=== PATIENT | male | born 1935 | race Caucasian/White ===

== ENCOUNTER 2018-12-05 15:22 | Emergency (ER) | payer MEDICARE ==
[2018-12-05 15:38] VITALS: BP 121/75
[2018-12-05] MEDS ORDERED: Ondansetron 4 MG/2 ML SDV IVPUSH ONE (16:02)
[2018-12-05] MEDS ORDERED: HYDROmorphone 1 MG/ML Syringe IVPUSH ONE (16:02)
--- NOTE | 2018-12-05 16:07 | EDM.PDOC ---
ED HPI GENERAL MEDICAL PROBLEM - General Chief Complaint: Lower Extremity Injury/Pain Stated Complaint: SEVERE PAIN IN RIGHT GROIN AREA Time Seen by Provider: 12/05/18 15:47 Source of Information: Reports: Patient History Limitations: Reports: No Limitations - History of Present Illness INITIAL COMMENTS - FREE TEXT/NARRATIVE: 83-year-old male presents to the ED with his . [facility] he went to see about right groin inguinal pain that he awoke with this morning. He was fine when he went to bed. He was up 3 times during the night to void and had no problems. Is a history of remote prostate cancer many years ago. 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 Subsequently he has fallen and fractured his left femur has a lc in place. He had to have a total hip replacement as well. He recently fell about 6 please don't fractured his left patella which is now in the healing stage. He has had no recent falls to injure his right lower extremity or hip. He points to the pain being right in the inguinal area. Concern by his edition [facility] was whether or not he had a inguinal incarcerated hernia. Patient could barely weight-bear due to the severity of the pain. You take a tramadol about 11:00 this morning with very minimal relief. Pain is gone if he doesn't move. Onset: Today Onset Date: 12/05/18 Onset Time: 07:30 Duration: Hour(s): Location: Reports: Lower Extremity, Right (Right inguinal area) Right Groin Pain Score (Numeric/FACES): 6 - Related Data Allergies Allergy/AdvReac Type Severity Reaction Status Date / Time Iodinated Contrast- Oral and Allergy Intermediate Hives Verified 12/05/18 15:37 IV Dye [Iodinated Contrast Media - IV Dye] Home Meds: Home Meds Levothyroxine 50 mcg PO ACBREAKFAST 10/27/14 [History] Sertraline [Zoloft] 100 mg PO DAILY 10/27/14 [History] Warfarin [Coumadin] 7.5 mg PO SUMOWEFR 10/27/14 [History] Gabapentin [Neurontin] 300 mg PO TID 05/08/15 [History] Aspirin 325 mg PO DAILY #0 05/09/15 [Rx] Warfarin [Coumadin] 5 mg PO TUTHSA #0 05/09/15 [Rx] Acetaminophen 650 mg PO Q6H PRN 12/05/18 [History] Atenolol 50 mg PO BID 12/05/18 [History] Calcium Carbonate/Vitamin D3 [Calcium Carb 500 MG] 2,000 mg PO DAILY 12/05/18 [ History] Cholecalciferol (Vitamin D3) [Vitamin D3] 2,000 unit PO DAILY 12/05/18 [History] Digoxin 125 mcg PO DAILY 12/05/18 [History] Polyethylene Glycol 3350 [MiraLAX] 17 gm PO TID PRN 12/05/18 [History] oxyCODONE 5 mg PO Q4H PRN 12/05/18 [History] Past Medical History HEENT History: Reports: Hard of Hearing, Impaired Vision Other HEENT History: Impaired vision corrected with glasses. 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 He speech was not affected by the stroke.) Other Psychiatric History: Patient reports some short term memory deficit. 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 Is due to start back on chemotherapy tomorrow.), Prostate Social & Family History - Living Situation & Occupation Living situation: Reports: Occupation: Retired [employer] - Review of Systems Review Of Systems: See Below Constitutional: Reports: Malaise, Weakness, Fatigue, Decreased Appetite, Weight Loss. Denies: Fever, Chills HEENT: Reports: Glasses Respiratory: Reports: No Symptoms Cardiovascular: Reports: No Symptoms Endocrine: Reports: Fatigue GI/Abdominal: Reports: Abdominal Pain (Right inguinal pain.), Constipation, Nausea (Vocational positive constipation.). Denies: Vomiting ( No nausea present due to the intensity of the pain) : Reports: Frequency, Other (Nocturia usually 2 or 3 times.) Musculoskeletal: Reports: Neck Pain, Shoulder Pain, Back Pain, Joint Pain (Left hip left knee is healing from a patellar fracture.) Skin: Reports: Bruising (Uses fairly easily.) Neurological: Reports: Difficulty Walking, Other (He has mild hemiparesis on the right arm and hand with nearly approaching contracture at the elbow and wrist. He cannot feed himself with his right upper extremity had to switch to the left side.). Denies: Trouble Speaking, Weakness Psychiatric: Reports: No Symptoms Hematologic/Lymphatic: Reports: No Symptoms Immunologic: Reports: No Symptoms ED EXAM, RENAL/ - Physical Exam Exam: See Below Exam Limited By: No Limitations General Appearance: Alert, WD/WN, Mild Distress Eye Exam: Bilateral Eye: Normal Inspection Throat/Mouth: Normal Inspection, Normal Lips, Normal Oropharynx Head: Atraumatic, Normocephalic Neck: Normal Inspection, Supple, Non-Tender, Full Range of Motion. No: Carotid Bruit, Lymphadenopathy (L) Respiratory/Chest: No Respiratory Distress, Lungs Clear, Normal Breath Sounds, No Accessory Muscle Use Cardiovascular: Normal Peripheral Pulses, Regular Rate, Rhythm, No Edema, No Gallop, No Murmur, No Rub GI/Abdominal: Normal Bowel Sounds, Soft, Non-Tender, No Organomegaly, No Abnormal Bruit, No Mass, Other (Male) Exam: Other (He does have a right-sided inguinal hernia with a cough impulse. There is no evidence that there is incarceration of the hernia.). No: Testicular Mass, Testicular Tenderness (L) Back Exam: Normal Inspection, Full Range of Motion. No: CVA Tenderness (L), CVA Tenderness (R) Extremities: Other (He is able to lift the left extremity off the gurney without any issues. Internal/external rotation of the hip does not make the pain worse on the right side. He is also able to lift the right leg off the gurney with some pain in the right inguinal area. He has pain inguinal area on external rotation of the hip. I could not localize any pain along the iliopsoas or the inguinal) Neurological: Alert, Oriented, CN II-XII Intact, Normal Cognition, Normal Gait Psychiatric: Normal Affect, Normal Mood Skin Exam: Warm, Dry, Intact, Normal Color, No Rash Course - Vital Signs Last Recorded V/S: Last Vital Signs Temp 36.6 C 12/05/18 15:35 Pulse 69 12/05/18 15:35 Resp 16 12/05/18 15:35 BP 121/75 12/05/18 15:35 Pulse Ox 92 L 12/05/18 15:35 - Orders/Labs/Meds Orders: Active Orders 24 hr Category Date Time Status Pelvis 1V or 2V [CR] Stat Exams 12/05/18 16:00 Taken Sodium Chloride 0.9% [Normal Saline] 1,000 ml Med 12/05/18 16:15 Active IV ASDIRECTED Medication Orders Sodium Chloride (Normal Saline) 1,000 mls @ 125 mls/hr IV ASDIRECTED SERG Last Admin: 12/05/18 16:22 Dose: 125 mls/hr Labs: Laboratory Tests 12/05/18 12/05/18 12/05/18 Range/Units 16:20 16:20 16:20 WBC 10.81 H (4.23-9.07) K/mm3 RBC 4.10 L (4.63-6.08) M/mm3 Hgb 12.0 L (13.7-17.5) gm/L Hct 37.2 L (40.1-51.0) % MCV 90.7 (79.0-92.2) fl MCH 29.3 (25.7-32.2) pg MCHC 32.3 (32.2-35.5) g/dl RDW Std Deviation 44.7 H (35.1-43.9) fL Plt Count 179 (163-337) K/mm3 MPV 9.8 (9.4-12.3) fl Neutrophils % (Manual) 93 H (40-60) % Band Neutrophils % 0 (0-10) % Lymphocytes % (Manual) 6 L (20-40) % Atypical Lymphs % 0 % Monocytes % (Manual) 1 L (2-10) % Eosinophils % (Manual) 0 L (0.8-7.0) % Basophils % (Manual) 0 L (0.2-1.2) Toxic Granulation Few Platelet Estimate Adequate Plt Morphology Comment Normal RBC Morph Comment Normal ESR 42 H (0-15) mm/hr Sodium 139 (136-145) mEq/L Potassium 4.3 (3.5-5.1) mEq/L Chloride 102 (98-107) mEq/L Carbon Dioxide 28 (21-32) mEq/L Anion Gap 13.3 (5-15) BUN 19 H (7-18) mg/dL Creatinine 0.9 (0.7-1.3) mg/dL Est Cr Clr Drug Dosing 70.65 mL/min Estimated GFR (MDRD) > 60 (>60) mL/min BUN/Creatinine Ratio 21.1 H (14-18) Glucose 115 (83-115) mg/dL Calcium 9.2 (8.5-10.1) mg/dL Total Bilirubin 0.5 (0.2-1.0) mg/dL AST 19 (15-37) U/L ALT 20 (16-63) U/L Alkaline Phosphatase 67 (46-116) U/L C-Reactive Protein 1.6 H* (<1.0) mg/dL Total Protein 7.1 (6.4-8.2) g/dl Albumin 3.3 L (3.4-5.0) g/dl Globulin 3.8 gm/dL Albumin/Globulin Ratio 0.9 L (1-2) Prostate Specific Ag (0.1-4.0) ng/mL 12/05/18 Range/Units 16:20 WBC (4.23-9.07) K/mm3 RBC (4.63-6.08) M/mm3 Hgb (13.7-17.5) gm/L Hct (40.1-51.0) % MCV (79.0-92.2) fl MCH (25.7-32.2) pg MCHC (32.2-35.5) g/dl RDW Std Deviation (35.1-43.9) fL Plt Count (163-337) K/mm3 MPV (9.4-12.3) fl Neutrophils % (Manual) (40-60) % Band Neutrophils % (0-10) % Lymphocytes % (Manual) (20-40) % Atypical Lymphs % % Monocytes % (Manual) (2-10) % Eosinophils % (Manual) (0.8-7.0) % Basophils % (Manual) (0.2-1.2) Toxic Granulation Platelet Estimate Plt Morphology Comment RBC Morph Comment ESR (0-15) mm/hr Sodium (136-145) mEq/L Potassium (3.5-5.1) mEq/L Chloride (98-107) mEq/L Carbon Dioxide (21-32) mEq/L Anion Gap (5-15) BUN (7-18) mg/dL Creatinine (0.7-1.3) mg/dL Est Cr Clr Drug Dosing mL/min Estimated GFR (MDRD) (>60) mL/min BUN/Creatinine Ratio (14-18) Glucose (83-115) mg/dL Calcium (8.5-10.1) mg/dL Total Bilirubin (0.2-1.0) mg/dL AST (15-37) U/L ALT (16-63) U/L Alkaline Phosphatase (46-116) U/L C-Reactive Protein (<1.0) mg/dL Total Protein (6.4-8.2) g/dl Albumin (3.4-5.0) g/dl Globulin gm/dL Albumin/Globulin Ratio (1-2) Prostate Specific Ag 0.0 L (0.1-4.0) ng/mL Meds: Medications Generic Name Dose Route Start Last Admin Trade Name Freq PRN Reason Stop Dose Admin Sodium Chloride 1,000 mls @ 125 mls/hr 12/05/18 16:15 12/05/18 16:22 Normal Saline IV 125 mls/hr ASDIRECTED SERG Administration Discontinued Medications Generic Name Dose Route Start Last Admin Trade Name Freq PRN Reason Stop Dose Admin Hydromorphone HCl 0.5 mg 12/05/18 16:02 12/05/18 16:23 Dilaudid IVPUSH 12/05/18 16:03 0.5 mg ONETIME ONE Administration Ondansetron HCl 4 mg 12/05/18 16:02 12/05/18 16:22 Zofran IVPUSH 12/05/18 16:03 4 mg ONETIME ONE Administration - Radiology Interpretation Free Text/Narrative:: 83-year-old male presents to the ED at the request of primary care physician at [facility]. He presents there was severe pain in his right inguinal area and especially with weightbearing since he awoke this morning. No falls or injuries. 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 Its unclear whether this was a pathologic fracture. You recently fell and fractured his left patella 6 weeks ago and is just on the mend from this. On examination he has pain only on external rotation of his hip on the right side. Left his left leg off the gurney with no issue and no pain on the right side even on external or internal rotation of the hip. There is evidence of a right inguinal hernia but it is not incarcerated but he has a cough impulse that is easily palpable. His pain is somewhat better now as compared to what it was earlier suggesting possibly that he did have an incarcerated hernia that his self reduced. With his history of prostate cancer with metastatic bone disease I'm therefore going to have x-rays of his pelvis done and routine labs done. He will receive Dilaudid 0.5 mg IV for pain relief with Zofran 4 mg IV as well. - Re-Assessments/Exams Free Text/Narrative Re-Assessment/Exam: 12/05/18 17:26: X-rays of the pelvis reveals a total left hip with reconstruction. No obvious pelvic fractures or abnormalities are identified within the right femoral neck or head. Acetabulum appears intact. No obvious lytic lesions are identified in the pelvis. 12/05/18 18:18 Labs are now back showing a white count of 10.81. Differential is 93% neutrophils and no band cells. Hemoglobin is 12.0 with hematocrit of 37.2. Platelet count is 179,000. Sedimentation rate is 42. Sodium 139 with a potassium of 4.3. Chloride 102 with a bicarbonate of 28. Anion gap is 13.3. BUN is 19 with a creatinine of 0.9. GFR remains greater than 60. Glucose is 1:15. Calcium is 9.2. Liver function is normal. Alk phosphatase is only 67 and increased any bony metastatic disease. C-reactive protein is 1.6. Total protein is 7.1. Albumin fraction is 3.3. Prostate-specific antigen is 0.0. 12/05/18 18:27 I get him up off the gurney with the help of a nurse and we stood him with the aid of a walker. He was able to lift the leg off the gurney without any pain whatsoever. He stood well and he could ambulate without any pain as well. I invaginated the scrotum to further evaluate for inguinal hernia and I could not identify one on either side. Pushing all along the inguinal ligament I could not identify any tendinopathy causes pain. Therefore I suspect it actually came from the true hip joint and was likely due to mild arthritic change. However at this point time I cannot pinpoint the source of his pain. At this time I'm going to allow him to go home with his and she is present in the room during this examination. It's a bit admitted in the med as to what caused his pain to be so bad today. They'll follow-up with oncologist in [place] tomorrow to decide on whether or not he needs further chemotherapy. Therefore I sent a copy of his chart with his labs that we did today with the patient. Departure - Departure Time of Disposition: 18:31 Disposition: Home, Self-Care 01 Condition: Fair Clinical Impression: Hip joint painful on movement Qualifiers: Laterality: right Qualified Code(s): M25.551 - Pain in right hip - Discharge Information *PRESCRIPTION DRUG MONITORING PROGRAM REVIEWED*: Not Applicable *COPY OF PRESCRIPTION DRUG MONITORING REPORT IN PATIENT SHADY: Not Applicable Instructions: Pain Without a Known Cause Referrals: Randy Padilla MD [Primary Care Provider] - Forms: ED Department Discharge Additional Instructions: Evaluation the emergency room today in regards to development of severe pain with attempting to weight-bear on the right leg.. To be pain deep in the inguinal ligament area with some concerns of a inguinal hernia mentioned by physician at [facility]. On evaluation in the emergency department he do have a cough impulse suggesting a hernia due to weakness of the abdominal wall on the right side as compared to the left. Mild pain with full internal rotation of your right hip but you could lift the leg off the gurney without any problems. The left leg has an artificial hip and a lc in the femur with a healing kneecap. History of prostate cancer 15 years ago with no known recurrence. Lab tests again revealed no signs of recurrence of prostate cancer and no signs of bone involvement with cancer. Trace of the pelvis show some mild arthritis in the right hip joint but no evidence of cancer invading the bone of the hip or the pelvis. On standing you had very little pain at this time with walking with the aid of a walker. Therefore the source of your pain that seemed to be transient today is unclear. Could find no evidence of ligamentous injury and upon standing with invagination of the scrotum I could not identify an inguinal hernia at all. It appears her pain was likely coming from the true hip joint causing groin pain that was transient. Therefore at this time I don't have any further suggestions for treatment other than possible need for anti-inflammatory medication if the pain reoccurs. Follow-up with personal physician if any further problems occur. - My Orders Last 24 Hours: My Active Orders 12/05/18 16:00 Pelvis 1V or 2V [CR] Stat 12/05/18 16:15 Sodium Chloride 0.9% [Normal Saline] 1,000 ml IV ASDIRECTED - Assessment/Plan Last 24 Hours: My Active Orders 12/05/18 16:00 Pelvis 1V or 2V [CR] Stat 12/05/18 16:15 Sodium Chloride 0.9% [Normal Saline] 1,000 ml IV ASDIRECTED
[2018-12-05] MEDS ORDERED: Sodium Chloride 0.9% 1,000 ML IV SCH (16:15)
--- NOTE | 2018-12-06 08:04 | CR ---
Pelvis: AP view of the pelvis was obtained. Comparison: No prior pelvis exam. Left hip prosthesis is seen. Components are aligned. Degenerative change is noted within the lower lumbar spine. Partial transitional segment is seen with pseudoarticulation of an enlarged transverse process of the lumbosacral junction to the sacrum. Joint space within the right hip is maintained. Heterotopic bone is noted around the left hip. Osteopenia is seen. Nothing acute is identified. Impression: 1. Degenerative change as noted above. Left hip prosthesis and osteopenia. 2. Nothing acute is seen. Diagnostic code #2
== END 2018-12-05 18:45 | disposition home or self-care (01) ==
LOC: JD.ED 15:22
DX: M25.551 Pain in right hip (principal); K40.90 Unilateral inguinal hernia, without obstruction or gangrene, not specified as recurrent; Z86.73 Personal history of transient ischemic attack (TIA), and cerebral infarction without residual deficits; Z79.899 Other long term (current) drug therapy; Z91.041 Radiographic dye allergy status; Z85.46 Personal history of malignant neoplasm of prostate; Z96.649 Presence of unspecified artificial hip joint
CPT/HCPCS: 36415; 72170; 80053; 84153; 85007; 85027; 85652; 86140; 96361; 96374; 96375; 99283; J1170; J2405; J7040; 99284

== ENCOUNTER 2022-03-10 19:00 | Emergency (ER) | payer MEDICARE ==
[2022-03-10] MEDS ORDERED: Magnesium Citrate Solution 296 ML Bottle PO ONE (19:56)
[2022-03-11] MEDS ORDERED: Polyethylene Glycol/Electrolytes 4,000 ML Bottle PO ONE (06:13)
[2022-03-11 07:08] VITALS: BP 139/65; PULSE 74
== END 2022-03-11 17:40 | disposition home or self-care (01) ==
LOC: JD.ED 19:00
DX: T18.198A Other foreign object in esophagus causing other injury, initial encounter (principal); I48.91 Unspecified atrial fibrillation; E03.9 Hypothyroidism, unspecified; E78.00 Pure hypercholesterolemia, unspecified; I10 Essential (primary) hypertension; Z95.0 Presence of cardiac pacemaker; Z86.73 Personal history of transient ischemic attack (TIA), and cerebral infarction without residual deficits; Z91.041 Radiographic dye allergy status; Z79.899 Other long term (current) drug therapy; Z79.01 Long term (current) use of anticoagulants
CPT/HCPCS: 36415; 74018; 80053; 99283; A9270; 99284

== ENCOUNTER 2022-09-12 10:29 | Inpatient (IN) | payer MEDICARE ==
[2022-09-12] MEDS ORDERED: Sodium Chloride 0.9% 10 ML Syringe FLUSH PRN (10:42)
[2022-09-12 13:08] LABS: CORONAVIRUS COVID-19 NAA POSITIVE (NEGATIVE)
[2022-09-12] MEDS ORDERED: REMDESIVIR 200 MG in Sodium Chloride 0.9% 250 ML IV ONE ×3 (14:53→20:00)
[2022-09-12] MEDS ORDERED: Sodium Chloride 0.9% 1,000 ML IV SCH (17:30)
[2022-09-12] MEDS ORDERED: Ibuprofen 400 MG Tab PO PRN (18:55)
[2022-09-12] MEDS ORDERED: Acetaminophen 325 MG Tab PO PRN (19:42)
[2022-09-12] MEDS: Atenolol 50 MG Tab PO SCH (22:20)
[2022-09-13] MEDS: Levothyroxine 50 MCG Tab PO SCH (06:38)
[2022-09-13] MEDS ORDERED: Enoxaparin 40 MG/0.4 ML Syringe SUBCUT SCH (09:00)
[2022-09-13 10:09] LABS: VITAMIN D,25-HYDROXY 53.9 ng/ml (30.0-100.0)
[2022-09-13] MEDS ORDERED: Polyethylene Glycol 3350 Powder 17 GM Packet PO PRN (10:29)
[2022-09-13] MEDS ORDERED: Docusate Sodium 100 MG Cap PO PRN (10:29)
[2022-09-13] MEDS ORDERED: Ondansetron 4 MG/2 ML SDV IV PRN (10:29)
[2022-09-13] MEDS: Atenolol 50 MG Tab PO SCH ×2 (11:43→20:28)
[2022-09-13] MEDS: Sertraline 50 MG Tab PO SCH (11:44)
[2022-09-13] MEDS: Digoxin 125 MCG Tab PO SCH (11:44)
[2022-09-13] MEDS: Aspirin 81 MG Tab.EC PO SCH (11:44)
[2022-09-13] MEDS: Iron Polysaccharides Complex 150 MG Cap PO SCH (13:22)
[2022-09-13] MEDS: REMDESIVIR 100 MG in Sodium Chloride 0.9% 250 ML IV SCH (15:47)
[2022-09-13] MEDS ORDERED: Warfarin 5 MG Tab PO SCH (18:00)
[2022-09-13] MEDS ORDERED: Warfarin 7.5 MG Tab PO SCH (18:00)
[2022-09-13] MEDS ORDERED: XTANDI 40 MG PO SCH (19:45)
[2022-09-13] MEDS: XTANDI 40 MG PO SCH (20:11)
[2022-09-13] MEDS: Acetaminophen 325 MG Tab PO PRN (20:28)
[2022-09-14] MEDS: Levothyroxine 50 MCG Tab PO SCH (05:10)
[2022-09-14 07:13] LABS: ESTIMATED GFR 84 mL/min (>60)
[2022-09-14] MEDS: Digoxin 125 MCG Tab PO SCH (08:03)
[2022-09-14] MEDS: Aspirin 81 MG Tab.EC PO SCH (08:03)
[2022-09-14] MEDS: Iron Polysaccharides Complex 150 MG Cap PO SCH (08:04)
[2022-09-14] MEDS: Atenolol 50 MG Tab PO SCH ×2 (08:04→20:05)
[2022-09-14] MEDS: Sertraline 50 MG Tab PO SCH (08:04)
[2022-09-14] MEDS: REMDESIVIR 100 MG in Sodium Chloride 0.9% 250 ML IV SCH (14:54)
[2022-09-14] MEDS ORDERED: Warfarin 7.5 MG Tab PO SCH (18:00)
[2022-09-14] MEDS: Acetaminophen 325 MG Tab PO PRN (20:05)
[2022-09-14] MEDS: XTANDI 40 MG PO SCH (20:06)
[2022-09-15] MEDS: Levothyroxine 50 MCG Tab PO SCH ×2 (04:33→05:01)
[2022-09-15 06:07] LABS: ESTIMATED GFR 87 mL/min (>60)
[2022-09-15] MEDS: Sertraline 50 MG Tab PO SCH (09:14)
[2022-09-15] MEDS: Atenolol 50 MG Tab PO SCH ×2 (09:15→20:05)
[2022-09-15] MEDS: Digoxin 125 MCG Tab PO SCH (09:15)
[2022-09-15] MEDS: Aspirin 81 MG Tab.EC PO SCH (09:15)
[2022-09-15] MEDS: Iron Polysaccharides Complex 150 MG Cap PO SCH (09:15)
[2022-09-15] MEDS: REMDESIVIR 100 MG in Sodium Chloride 0.9% 250 ML IV SCH (15:30)
[2022-09-15] MEDS ORDERED: Warfarin 7.5 MG Tab PO SCH (18:00)
[2022-09-15] MEDS: XTANDI 40 MG PO SCH (20:05)
[2022-09-16] MEDS: Levothyroxine 50 MCG Tab PO SCH ×2 (04:53→05:17)
[2022-09-16 07:27] LABS: ESTIMATED GFR 84 mL/min (>60)
[2022-09-16] MEDS: Iron Polysaccharides Complex 150 MG Cap PO SCH (09:09)
[2022-09-16] MEDS: Digoxin 125 MCG Tab PO SCH (09:09)
[2022-09-16] MEDS: Sertraline 50 MG Tab PO SCH (09:10)
[2022-09-16] MEDS: Aspirin 81 MG Tab.EC PO SCH (09:10)
[2022-09-16] MEDS: Atenolol 50 MG Tab PO SCH (09:10)
[2022-09-16 09:13] VITALS: BP 106/51; PULSE 65
[2022-09-16] MEDS ORDERED: REMDESIVIR 100 MG in Sodium Chloride 0.9% 250 ML IV SCH (11:00)
[2022-09-16] MEDS ORDERED: Warfarin 7.5 MG Tab PO SCH (18:00)
== END 2022-09-16 13:45 | disposition home or self-care (01) | DRG 178 ==
LOC: JD.ED 10:29 → JD.MS 18:55
PROVIDERS: ADMIT Pediatrics; ATTEND Pediatrics
PROC: 8E0ZXY6 Isolation (ICD-10-PCS; principal; 2022-09-12)
PROC: XW033E5 Introduction of Remdesivir Anti-infective into Peripheral Vein, Percutaneous Approach, New Technology Group 5 (ICD-10-PCS; 2022-09-12)
DX: U07.1 COVID-19 (principal); I48.92 Unspecified atrial flutter; I69.351 Hemiplegia and hemiparesis following cerebral infarction affecting right dominant side; F03.90 Unspecified dementia, unspecified severity, without behavioral disturbance, psychotic disturbance, mood disturbance, and anxiety; Z66 Do not resuscitate; E78.5 Hyperlipidemia, unspecified; I10 Essential (primary) hypertension; F32.89 Other specified depressive episodes; I48.91 Unspecified atrial fibrillation; D50.9 Iron deficiency anemia, unspecified; R41.3 Other amnesia; E03.9 Hypothyroidism, unspecified; Z79.890 Hormone replacement therapy; Z79.01 Long term (current) use of anticoagulants; Z95.0 Presence of cardiac pacemaker; Z91.041 Radiographic dye allergy status; Z98.42 Cataract extraction status, left eye; Z98.41 Cataract extraction status, right eye; Z97.3 Presence of spectacles and contact lenses; Z97.4 Presence of external hearing-aid; Z87.01 Personal history of pneumonia (recurrent); Z85.89 Personal history of malignant neoplasm of other organs and systems; Z85.46 Personal history of malignant neoplasm of prostate
CPT/HCPCS: 0241U; 36415; 70450; 71045; 80053; 80162; 81001; 82306; 82550; 82553; 82607; 82746; 82947; 83540; 83605; 83690; 83735; 84145; 84443; 84484; 85025; 85610; 85611; 85652; 85730; 86140; 87040; 93005; 96361; 96365; 97110; 97116; 97162; 97166; 97530; 97535; 99285; A9270-GY; J0248; J1650; J3490; J7030; J7050

== ENCOUNTER 2023-08-23 20:35 | Inpatient (IN) | payer MEDICARE ==
[2023-08-23 21:09] LABS: BASOPHILS PERCENT AUTO 0.4 % (0.0-1.0); EOSINOPHILS PERCENT AUTO 0.2 % (0.0-6.0); HEMATOCRIT 33.6 % (42.0-52.0); HEMOGLOBIN 10.9 gm/dl (14.0-18.0); IMMATURE GRAN ABSOLUTE AUTO 0.02 K/mm3 (0.00-0.05); IMMATURE GRAN PERCENT AUTO 0.2 % (0.0-0.4); LYMPHOCYTES PERCENT AUTO 11.9 % (24.0-44.0); MEAN CORPUSCULAR HEMOGLOBIN 32.6 pg (28.0-32.0); MEAN CORPUSCULAR HGB CONC 32.4 g/dl (32.0-36.0); MEAN CORPUSCULAR VOLUME 100.6 fl (83.0-99.0); MEAN PLATELET VOLUME 9.9 fl (9.4-12.4); MONOCYTES ABSOLUTE AUTO 0.9 K/mm3 (0.0-0.8); MONOCYTES PERCENT AUTO 10.6 % (0.0-8.0); NEUTROPHILS ABSOLUTE AUTO 6.5 K/mm3 (1.8-7.7); NEUTROPHILS PERCENT AUTO 76.7 % (41.0-71.0); PLATELET COUNT,PLT 178 K/mm3 (150-400); RED BLOOD CELL COUNT 3.34 M/mm3 (4.52-5.90); WHITE BLOOD CELL COUNT,WBC 8.49 K/mm3 (3.9-11.3)
[2023-08-23] MEDS ORDERED: Furosemide 40 MG/4 ML VIAL IVPUSH ONE (21:25)
[2023-08-23] MEDS ORDERED: Sodium Chloride 0.9% 10 ML Syringe FLUSH PRN (21:25)
[2023-08-23 21:27] LABS: INR 3.04
[2023-08-23 21:28] LABS: PTT,PARTIAL THROMBOPLSTIN TIME 40.4 SECONDS (21.7-31.4)
[2023-08-23 21:47] LABS: A/G RATIO 0.8 (1-2); ANION GAP 14.1 (5-15); BILIRUBIN TOTAL 0.5 mg/dL (0.2-1.0); C-REACTIVE PROTEIN 2.2 mg/dL (<1.0); CALCIUM 9.1 mg/dL (8.5-10.1); DIGOXIN 0.6 ng/mL (0.9-2.0); EST CRCL DRUG DOSING (CG) 54.43 mL/min; MAGNESIUM 2.1 mg/dL (1.8-2.4); POTASSIUM,K 4.1 mEq/L (3.5-5.1)
[2023-08-23 22:00] LABS: HEMOGLOBIN A1C 5.3 %
[2023-08-23 22:11] LABS: CORONAVIRUS COVID-19 NAA NEGATIVE (NEGATIVE); INFLUENZA A NAA NEGATIVE (NEGATIVE)
[2023-08-23 22:26] LABS: APPEARANCE,URINE CLEAR (Clear); BILIRUBIN,URINE NEGATIVE (Negative); COLOR,URINE LIGHT YELLOW (Yellow); GLUCOSE,URINE NEGATIVE (Negative); KETONES,URINE NEGATIVE (Negative); LEUKOCYTE ESTERASE,URINE NEGATIVE (Negative); NITRITE,URINE NEGATIVE (Negative); OCCULT BLOOD,URINE 2+ (Negative); PROTEIN,URINE NEGATIVE (Negative); UROBILINOGEN,URINE 0.2 (0.2-1.0)
[2023-08-23 22:49] LABS: BACTERIA,URINE FEW /hpf (FEW); MUCUS,URINE NOT SEEN /hpf (FEW); RBC,URINE 20-30 /hpf (0-5); SQUAMOUS EPITHELIAL CELLS,UR 0-5 /hpf (0-5); WBC,URINE 0-5 /hpf (0-5)
[2023-08-24 05:06] LABS: ANION GAP 13.3 (5-15); BUN/CREATININE RATIO 23.3 (14-18); CALCIUM 8.6 mg/dL (8.5-10.1); CREATININE 0.9 mg/dL (0.7-1.3); POTASSIUM,K 3.3 mEq/L (3.5-5.1)
[2023-08-24] MEDS ORDERED: Furosemide 40 MG/4 ML VIAL IVPUSH ONE ×2 (06:00→11:00)
[2023-08-24] MEDS ORDERED: Furosemide 40 MG/4 ML VIAL IVPUSH SCH (06:15)
[2023-08-24] MEDS ORDERED: Potassium Chloride 20 MEQ Tab.ER PO ONE (09:00)
[2023-08-24] MEDS: Acetaminophen 325 MG Tab PO PRN (15:21)
[2023-08-24] MEDS ORDERED: OLANZapine 5 MG Tab PO PRN (19:56)
[2023-08-24] MEDS ORDERED: Warfarin 5 MG Tab PO SCH (20:00)
[2023-08-24] MEDS ORDERED: Sertraline 25 MG Tab PO SCH (20:00)
[2023-08-24 20:23] LABS: INR 2.49; PROTHROMBIN TIME 24.9 SECONDS (9.7-12.0)
[2023-08-24] MEDS ORDERED: Digoxin 125 MCG Tab PO SCH (21:00)
[2023-08-24] MEDS: Aspirin 81 MG Tab.EC PO SCH (21:10)
[2023-08-24] MEDS: Atenolol 50 MG Tab PO SCH (21:12)
[2023-08-25] MEDS ORDERED: Levothyroxine 50 MCG Tab PO SCH (06:00)
[2023-08-25 06:37] LABS: ANION GAP 12.7 (5-15); CALCIUM 8.5 mg/dL (8.5-10.1); EST CRCL DRUG DOSING (CG) 52.22 mL/min; POTASSIUM,K 3.7 mEq/L (3.5-5.1)
[2023-08-25] MEDS ORDERED: Ondansetron 4 MG Tab.DIS PO ONE (08:34)
[2023-08-25] MEDS: Acetaminophen 325 MG Tab PO PRN (08:40)
[2023-08-25] MEDS: Atenolol 50 MG Tab PO SCH (08:40)
[2023-08-25 08:41] VITALS: BP 142/73; PULSE 64
[2023-08-25] MEDS: Aspirin 81 MG Tab.EC PO SCH (08:41)
[2023-08-25] MEDS ORDERED: Warfarin 7.5 MG Tab PO SCH (18:00)
== END 2023-08-25 09:13 | DRG 292 ==
LOC: JD.ED 20:35 → JD.MS 22:44
PROVIDERS: ADMIT Emergency Medicine; ATTEND Hospitalist
DX: I11.0 Hypertensive heart disease with heart failure (principal); I50.9 Heart failure, unspecified; C79.51 Secondary malignant neoplasm of bone; R79.1 Abnormal coagulation profile; I50.22 Chronic systolic (congestive) heart failure; I48.91 Unspecified atrial fibrillation; C61 Malignant neoplasm of prostate; E03.9 Hypothyroidism, unspecified; Z66 Do not resuscitate; Z20.822 Contact with and (suspected) exposure to COVID-19; H91.90 Unspecified hearing loss, unspecified ear; Z96.649 Presence of unspecified artificial hip joint; Z96.659 Presence of unspecified artificial knee joint; E78.00 Pure hypercholesterolemia, unspecified; D50.9 Iron deficiency anemia, unspecified; F32.A Depression, unspecified; Z86.73 Personal history of transient ischemic attack (TIA), and cerebral infarction without residual deficits; Z91.041 Radiographic dye allergy status; Z98.890 Other specified postprocedural states; Z95.0 Presence of cardiac pacemaker; Z79.899 Other long term (current) drug therapy; Z79.890 Hormone replacement therapy; Z87.01 Personal history of pneumonia (recurrent); Z87.891 Personal history of nicotine dependence; Z79.82 Long term (current) use of aspirin; Z79.01 Long term (current) use of anticoagulants; Z11.52 Encounter for screening for COVID-19; Z99.3 Dependence on wheelchair
CPT/HCPCS: 0240U; 36415; 71045; 80048; 80053; 80162; 81001; 83036; 83605; 83735; 83880; 84484; 85025; 85610; 85730; 86140; 93005; 94660; 94761; 96374; 97162; 97530; 99285; 93010; 99222; 99239; A9270-GY; J1940

== ENCOUNTER 2024-03-05 13:01 | Emergency (ER) | payer MEDICARE ==
[2024-03-05 14:35] LABS: BASOPHILS PERCENT AUTO 0.4 % (0.0-1.0); EOSINOPHILS PERCENT AUTO 0.4 % (0.0-6.0); HEMATOCRIT 33.3 % (42.0-52.0); IMMATURE GRAN ABSOLUTE AUTO 0.02 K/mm3 (0.00-0.05); IMMATURE GRAN PERCENT AUTO 0.4 % (0.0-0.4); LYMPHOCYTES ABSOLUTE AUTO 0.6 K/mm3 (1.0-4.8); LYMPHOCYTES PERCENT AUTO 12.4 % (24.0-44.0); MEAN CORPUSCULAR HEMOGLOBIN 31.9 pg (28.0-32.0); MEAN CORPUSCULAR VOLUME 96.5 fl (83.0-99.0); MEAN PLATELET VOLUME 9.7 fl (9.4-12.4); MONOCYTES ABSOLUTE AUTO 0.3 K/mm3 (0.0-0.8); MONOCYTES PERCENT AUTO 7.4 % (0.0-8.0); NEUTROPHILS ABSOLUTE AUTO 3.6 K/mm3 (1.8-7.7); PLATELET COUNT,PLT 168 K/mm3 (150-400); RED BLOOD CELL COUNT 3.45 M/mm3 (4.52-5.90)
[2024-03-05 15:28] LABS: A/G RATIO 0.8 (1-2); ALANINE AMINOTRANSFERASE,ALT 14 U/L (16-63); ALKALINE PHOSPHATASE 357 U/L (46-116); ANION GAP 12.7 (5-15); ASPARTATE AMNIOTRANSFERASE,AST 32 U/L (15-37); BILIRUBIN TOTAL 0.5 mg/dL (0.2-1.0); BLOOD UREA NITROGEN,BUN 17 mg/dL (7-18); BUN/CREATININE RATIO 15.5 (14-18); CALCIUM 8.6 mg/dL (8.5-10.1); CARBON DIOXIDE,CO2 27 mEq/L (21-32); CHLORIDE,CL 103 mEq/L (98-107); CREATININE 1.1 mg/dL (0.7-1.3); ESTIMATED GFR 65 mL/min (>60); GLUCOSE RANDOM 96 mg/dL (70-99); LIPASE 26 U/L (16-77); MAGNESIUM 2.1 mg/dL (1.8-2.4); POTASSIUM,K 3.7 mEq/L (3.5-5.1); PROTEIN TOTAL,TP 6.9 g/dl (6.4-8.2); SODIUM,NA 139 mEq/L (136-145)
[2024-03-05] MEDS: Iopamidol 612 MG/ML 100 ML Bottle IVPUSH ONE (15:51)
[2024-03-05] MEDS: Sodium Chloride 0.9% 10 ML Syringe FLUSH PRN ×2 (15:52→16:02)
[2024-03-05] MEDS: diphenhydrAMINE 50 MG/ML SDV IVPUSH ONE (16:00)
[2024-03-05] MEDS: Sodium Chloride 0.9% 1,000 ML IV STA (16:00)
[2024-03-05] MEDS: Ondansetron 4 MG/2 ML SDV IVPUSH ONE (16:00)
[2024-03-05] MEDS: Ondansetron 4 MG/2 ML SDV ONE (16:03)
[2024-03-05 16:16] LABS: APPEARANCE,URINE CLEAR (Clear); BILIRUBIN,URINE NEGATIVE (Negative); COLOR,URINE YELLOW (Yellow); GLUCOSE,URINE NEGATIVE (Negative); KETONES,URINE NEGATIVE (Negative); LEUKOCYTE ESTERASE,URINE NEGATIVE (Negative); NITRITE,URINE NEGATIVE (Negative); OCCULT BLOOD,URINE 2+ (Negative); PH,URINE 5.5 (5.0-8.0); PROTEIN,URINE NEGATIVE (Negative); UROBILINOGEN,URINE 0.2 (0.2-1.0)
[2024-03-05 16:17] LABS: BACTERIA,URINE FEW /hpf (FEW); MUCUS,URINE FEW /hpf (FEW); SQUAMOUS EPITHELIAL CELLS,UR 0-5 /hpf (0-5); WBC,URINE 0-5 /hpf (0-5)
[2024-03-05 16:51] LABS: INR 7.34; PROTHROMBIN TIME 68.3 SECONDS (9.7-12.0)
[2024-03-05] MEDS: Famotidine 20 MG/2 ML SDV IVPUSH ONE (16:57)
[2024-03-05] MEDS: methylPREDNISolone Sodium Succinate 125 MG/2 ML SDV IVPUSH ONE (16:57)
[2024-03-05 20:29] VITALS: BP 135/85; PULSE 82
== END 2024-03-05 20:31 | disposition home or self-care (01) ==
LOC: JD.ED 13:01
DX: K59.00 Constipation, unspecified (principal); C79.51 Secondary malignant neoplasm of bone; R91.1 Solitary pulmonary nodule; R79.1 Abnormal coagulation profile; I11.0 Hypertensive heart disease with heart failure; I50.9 Heart failure, unspecified; E03.9 Hypothyroidism, unspecified; Z79.899 Other long term (current) drug therapy; Z79.82 Long term (current) use of aspirin; Z88.8 Allergy status to other drugs, medicaments and biological substances
CPT/HCPCS: 36415; 71250; 71250-26; 74177; 74177-26; 80053; 81001; 82272; 83690; 83735; 85025; 85610; 87045; 87046; 87493; 87899; 96361; 96374; 96375; 99285; 99285-25; G0103; J1200; J2405; J2919; J3490; J7030; Q9967

== ENCOUNTER 2024-03-17 20:31 | Inpatient (IN) | payer MEDICARE ==
[2024-03-17 23:09] LABS: BASOPHILS PERCENT AUTO 0.4 % (0.0-1.0); EOSINOPHILS PERCENT AUTO 0.1 % (0.0-6.0); HEMATOCRIT 28.9 % (42.0-52.0); HEMOGLOBIN 9.5 gm/dl (14.0-18.0); IMMATURE GRAN ABSOLUTE AUTO 0.01 K/mm3 (0.00-0.05); IMMATURE GRAN PERCENT AUTO 0.1 % (0.0-0.4); LYMPHOCYTES ABSOLUTE AUTO 0.9 K/mm3 (1.0-4.8); LYMPHOCYTES PERCENT AUTO 11.3 % (24.0-44.0); MEAN CORPUSCULAR HEMOGLOBIN 31.4 pg (28.0-32.0); MEAN CORPUSCULAR HGB CONC 32.9 g/dl (32.0-36.0); MEAN CORPUSCULAR VOLUME 95.4 fl (83.0-99.0); MEAN PLATELET VOLUME 9.2 fl (9.4-12.4); MONOCYTES ABSOLUTE AUTO 0.6 K/mm3 (0.0-0.8); MONOCYTES PERCENT AUTO 7.6 % (0.0-8.0); NEUTROPHILS ABSOLUTE AUTO 6.1 K/mm3 (1.8-7.7); NEUTROPHILS PERCENT AUTO 80.5 % (41.0-71.0); PLATELET COUNT,PLT 186 K/mm3 (150-400); RED BLOOD CELL COUNT 3.03 M/mm3 (4.52-5.90); WHITE BLOOD CELL COUNT,WBC 7.53 K/mm3 (3.9-11.3)
[2024-03-17 23:23] LABS: HEMOGLOBIN A1C 5.5 %
[2024-03-17 23:28] LABS: INR 1.77; PROTHROMBIN TIME 18.1 SECONDS (9.7-12.0)
[2024-03-17 23:31] LABS: LACTIC ACID 1.1 mmol/L (0.4-2.0)
[2024-03-18 00:04] LABS: A/G RATIO 0.7 (1-2); ALBUMIN 2.6 g/dl (3.4-5.0); ANION GAP 12.3 (5-15); BILIRUBIN TOTAL 0.4 mg/dL (0.2-1.0); C-REACTIVE PROTEIN 7.38 mg/dL (<0.30); CALCIUM 8.5 mg/dL (8.5-10.1); EST CRCL DRUG DOSING (CG) 48.31 mL/min; MAGNESIUM 2.3 mg/dL (1.8-2.4); POTASSIUM,K 4.3 mEq/L (3.5-5.1); PROTEIN TOTAL,TP 6.6 g/dl (6.4-8.2)
[2024-03-18] MEDS: cefTRIAXone 2 GM in Sodium Chloride 0.9% 100 ML IV ONE (00:13)
[2024-03-18] MEDS: Lactated Ringers 1,000 ML IV SCH ×2 (00:13→04:05)
[2024-03-18 00:14] LABS: CORONAVIRUS COVID-19 NAA NEGATIVE (NEGATIVE); INFLUENZA A NAA NEGATIVE (NEGATIVE); RESPIRATORY SYNCYTIAL VIR NAA NEGATIVE (NEGATIVE)
[2024-03-18] MEDS: Acetaminophen 325 MG Tab PO ONE ×2 (00:15→09:14)
[2024-03-18 04:04] LABS: APPEARANCE,URINE CLEAR (Clear); BILIRUBIN,URINE NEGATIVE (Negative); COLOR,URINE LIGHT YELLOW (Yellow); GLUCOSE,URINE NEGATIVE (Negative); KETONES,URINE NEGATIVE (Negative); LEUKOCYTE ESTERASE,URINE 2+ (Negative); NITRITE,URINE NEGATIVE (Negative); OCCULT BLOOD,URINE 2+ (Negative); PROTEIN,URINE NEGATIVE (Negative); UROBILINOGEN,URINE 0.2 (0.2-1.0)
[2024-03-18 04:22] LABS: BACTERIA,URINE FEW /hpf (FEW); EPITHELIAL CELLS,URINE 0-5 /hpf (0-5); MUCUS,URINE NOT SEEN /hpf (FEW)
[2024-03-18] MEDS: Acetaminophen 325 MG Tab ONE (09:20)
[2024-03-18] MEDS ORDERED: Acetaminophen 325 MG Tab PO PRN (09:26)
[2024-03-18] MEDS: Metoprolol Succinate 50 MG Tab.ER PO SCH (11:18)
[2024-03-18] MEDS: Furosemide 20 MG Tab PO SCH (11:19)
[2024-03-18] MEDS: Digoxin 125 MCG Tab PO SCH (11:19)
[2024-03-18] MEDS: Aspirin 81 MG Tab.EC PO SCH (11:19)
[2024-03-18] MEDS: Sertraline 50 MG Tab PO SCH (11:19)
[2024-03-18] MEDS: Warfarin 5 MG Tab PO SCH (17:24)
[2024-03-18] MEDS: cefTRIAXone 2 GM in Sodium Chloride 0.9% 100 ML IV SCH (19:51)
[2024-03-19 04:38] LABS: HEMATOCRIT 29.8 % (42.0-52.0); HEMOGLOBIN 10.1 gm/dl (14.0-18.0); MEAN CORPUSCULAR HEMOGLOBIN 31.9 pg (28.0-32.0); MEAN CORPUSCULAR HGB CONC 33.9 g/dl (32.0-36.0); MEAN PLATELET VOLUME 9.5 fl (9.4-12.4); PLATELET COUNT,PLT 155 K/mm3 (150-400); RED BLOOD CELL COUNT 3.17 M/mm3 (4.52-5.90); WHITE BLOOD CELL COUNT,WBC 6.76 K/mm3 (3.9-11.3)
[2024-03-19 05:15] LABS: ANION GAP 15.5 (5-15); CREATININE 0.9 mg/dL (0.7-1.3); POTASSIUM,K 4.5 mEq/L (3.5-5.1)
[2024-03-19 05:16] LABS: A/G RATIO 0.6 (1-2); ALBUMIN 2.4 g/dl (3.4-5.0); BILIRUBIN TOTAL 0.3 mg/dL (0.2-1.0); CALCIUM 8.2 mg/dL (8.5-10.1); EST CRCL DRUG DOSING (CG) 51.1 mL/min; PROTEIN TOTAL,TP 6.4 g/dl (6.4-8.2)
[2024-03-19 05:19] LABS: INR 1.84; PROTHROMBIN TIME 18.7 SECONDS (9.7-12.0)
[2024-03-19] MEDS: Levothyroxine 50 MCG Tab PO SCH (06:08)
[2024-03-19] MEDS: Iron Polysaccharides Complex 150 MG Cap PO SCH (08:26)
[2024-03-19] MEDS: Warfarin 3 MG Tab PO SCH (18:32)
[2024-03-20 04:51] LABS: HEMATOCRIT 32.1 % (42.0-52.0); HEMOGLOBIN 10.7 gm/dl (14.0-18.0); MEAN CORPUSCULAR HEMOGLOBIN 30.9 pg (28.0-32.0); MEAN CORPUSCULAR HGB CONC 33.3 g/dl (32.0-36.0); MEAN CORPUSCULAR VOLUME 92.8 fl (83.0-99.0); MEAN PLATELET VOLUME 9.7 fl (9.4-12.4); PLATELET COUNT,PLT 184 K/mm3 (150-400); RED BLOOD CELL COUNT 3.46 M/mm3 (4.52-5.90)
[2024-03-20 05:09] LABS: INR 2.21; PROTHROMBIN TIME 22.2 SECONDS (9.7-12.0)
[2024-03-20 05:21] LABS: A/G RATIO 0.6 (1-2); ALBUMIN 2.5 g/dl (3.4-5.0); ANION GAP 14.1 (5-15); BILIRUBIN TOTAL 0.3 mg/dL (0.2-1.0); C-REACTIVE PROTEIN 11.24 mg/dL (<0.30); CALCIUM 8.7 mg/dL (8.5-10.1); CREATININE 0.8 mg/dL (0.7-1.3); EST CRCL DRUG DOSING (CG) 57.49 mL/min; POTASSIUM,K 4.1 mEq/L (3.5-5.1); PROTEIN TOTAL,TP 6.8 g/dl (6.4-8.2)
[2024-03-20] MEDS: Acetaminophen 325 MG Tab PO PRN (16:21)
[2024-03-20] MEDS: Warfarin 5 MG Tab PO SCH (17:15)
[2024-03-21 06:51] LABS: INR 2.15; PROTHROMBIN TIME 21.7 SECONDS (9.7-12.0)
[2024-03-21] MEDS: Warfarin 5 MG Tab PO SCH (17:55)
[2024-03-22 11:52] LABS: INR 1.99; PROTHROMBIN TIME 20.2 SECONDS (9.7-12.0)
[2024-03-22] MEDS: Warfarin 3 MG Tab PO SCH (18:22)
[2024-03-23 06:36] LABS: INR 1.79; PROTHROMBIN TIME 18.3 SECONDS (9.7-12.0)
[2024-03-23] MEDS: Ondansetron 4 MG/2 ML SDV IV PRN (08:43)
[2024-03-23] MEDS: Warfarin 3 MG Tab PO SCH (18:35)
[2024-03-24 06:26] LABS: INR 2.14; PROTHROMBIN TIME 21.6 SECONDS (9.7-12.0)
[2024-03-24] MEDS: Warfarin 3 MG Tab PO SCH (18:10)
[2024-03-25 07:05] LABS: INR 2.24; PROTHROMBIN TIME 22.5 SECONDS (9.7-12.0)
[2024-03-25] MEDS: Warfarin 3 MG Tab PO SCH (17:47)
[2024-03-26 06:10] LABS: INR 2.19; PROTHROMBIN TIME 22.1 SECONDS (9.7-12.0)
[2024-03-26] MEDS: traMADol 50 MG Tab PO PRN (08:49)
[2024-03-26] MEDS: Morphine 2 MG/ML SYRINGE IVPUSH PRN (12:12)
[2024-03-26] MEDS: HYDROmorphone 0.5 MG/0.5 ML Syringe IVPUSH ONE (13:34)
[2024-03-26] MEDS: Warfarin 3 MG Tab PO SCH (17:01)
[2024-03-27] MEDS: oxyCODONE 5 MG Tab PO PRN (05:06)
[2024-03-27 05:16] LABS: INR 2.26; PROTHROMBIN TIME 22.7 SECONDS (9.7-12.0)
[2024-03-27 08:08] VITALS: BP 110/56; PULSE 67
[2024-03-27] MEDS: fentaNYL 12 MCG/HR Transdermal Patch TRDERM SCH (10:47)
[2024-03-27] MEDS ORDERED: Warfarin 3 MG Tab PO SCH (18:00)
== END 2024-03-27 12:40 | DRG 871 ==
LOC: JD.ED 20:31 → JD.MS 03-18 09:12
PROVIDERS: ADMIT Internal Medicine; ATTEND Family Medicine
DX: R41.0 Disorientation, unspecified (principal); A41.9 Sepsis, unspecified organism; G93.41 Metabolic encephalopathy; N10 Acute pyelonephritis; R50.9 Fever, unspecified; C79.51 Secondary malignant neoplasm of bone; F05 Delirium due to known physiological condition; R64 Cachexia; Z68.1 Body mass index [BMI] 19.9 or less, adult; I48.92 Unspecified atrial flutter; I48.20 Chronic atrial fibrillation, unspecified; F03.A2 Unspecified dementia, mild, with psychotic disturbance; Z79.890 Hormone replacement therapy; F03.A3 Unspecified dementia, mild, with mood disturbance; R65.20 Severe sepsis without septic shock; Z66 Do not resuscitate; Z51.5 Encounter for palliative care; C61 Malignant neoplasm of prostate; H91.90 Unspecified hearing loss, unspecified ear; H54.7 Unspecified visual loss; I50.9 Heart failure, unspecified; E78.00 Pure hypercholesterolemia, unspecified; I11.0 Hypertensive heart disease with heart failure; M06.9 Rheumatoid arthritis, unspecified; E03.9 Hypothyroidism, unspecified; Z96.659 Presence of unspecified artificial knee joint; R32 Unspecified urinary incontinence; D50.9 Iron deficiency anemia, unspecified; Z96.642 Presence of left artificial hip joint; I69.30 Unspecified sequelae of cerebral infarction; Z91.041 Radiographic dye allergy status; Z79.82 Long term (current) use of aspirin; Z79.01 Long term (current) use of anticoagulants; Z79.899 Other long term (current) drug therapy; Z95.0 Presence of cardiac pacemaker; Z87.01 Personal history of pneumonia (recurrent); Z98.890 Other specified postprocedural states
CPT/HCPCS: 0241U; 36415; 71045; 74018; 80053; 80162; 81001; 82728; 83036; 83540; 83605; 83735; 83880; 84153; 84484; 85025; 85027; 85610; 85730; 86140; 87040; 87086; 93005; 94760; 94761; 96361; 96365; 97110; 97161; 97530; 99285; 93010; 99231; 99239; A9270-GY; C1758; J0696; J1170; J2270; J2405; J3490; J7120; U0002